=== PATIENT | male | born 1965 | race American Indian/Alaskan Native ===

== ENCOUNTER 2018-05-03 10:08 | Emergency (ER) | payer SELFPAY ==
[2018-05-03 10:19] VITALS: BP 136/94
[2018-05-03] MEDS ORDERED: MOTRIN PO ONE (11:45)
--- NOTE | 2018-05-03 11:54 | Emergency Department Report ---
ED Upper Extremity Inj HPI - General Chief Complaint: Pain General Stated Complaint: LEFT ARM PAIN Time Seen by Provider: 05/03/18 11:45 Source: patient Mode of arrival: Ambulatory Limitations: No Limitations - History of Present Illness Initial Comments: This is a 52-year-old male nontoxic, well nourished in appearance, no acute signs of distress presents to the ED with c/o of left forearm pain 1 week. 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 Patient denies any other trauma. Patient denies any numbness, tingling, fever, chills, nausea, vomiting, chest pain, shortness of breath, headache, stiff neck. Patient denies any joint swelling or joint redness. Patient denies decreased range of motion. Patient denies any allergies or significant past medical history. MD Complaint: Injury to:: left, forearm -: week(s) (1) Other Extremity Injury: Forearm: Left Other Injuries: none Place: work Severity scale (0 -10): 8 Improves With: none Worsens With: other (palpation of flexor digitorum superficialis muscle) Associated Symptoms: denies other symptoms. denies: weakness, numbness, neck pain, suspects foreign body, nausea/vomiting, heard/felt popping sensat - Related Data Previous Rx's Medication Instructions Recorded Last Taken Type HYDROcodone/APAP 10-325 [[place] 1 each PO Q6H PRN #12 tablet 12/18/14 Unknown Rx 10/325] Promethazine [Phenergan] 25 mg PO Q6H PRN #8 tablet 12/18/14 Unknown Rx Amoxicillin 500 mg PO BID #14 tablet 12/24/14 Unknown Rx Butalb/Acetamin/Caff 50-325-40 2 tab PO Q8H PRN #20 tablet 12/24/14 Unknown Rx [Fioricet] Cyclobenzaprine [Flexeril] 10 mg PO QHS PRN #10 tablet 05/03/18 Unknown Rx Ibuprofen [Motrin] 600 mg PO Q8H PRN #30 tablet 05/03/18 Unknown Rx Prednisone [predniSONE 10 mg 10 mg PO .TAPER #1 tab.ds.pk 05/03/18 Unknown Rx (6-Day Pack, 21 Tabs)] Allergies Allergy/AdvReac Type Severity Reaction Status Date / Time No Known Allergies Allergy Verified 12/18/14 07:59 ED Review of Systems ROS: Stated complaint: LEFT ARM PAIN Other details as noted in HPI Constitutional: denies: chills, fever Eyes: denies: eye pain, eye discharge, vision change ENT: denies: ear pain, throat pain Respiratory: denies: cough, shortness of breath, wheezing Cardiovascular: denies: chest pain, palpitations Endocrine: no symptoms reported Gastrointestinal: denies: abdominal pain, nausea, diarrhea Genitourinary: denies: urgency, dysuria Musculoskeletal: denies: back pain, joint swelling, arthralgia Skin: denies: rash, lesions Neurological: denies: headache, weakness, paresthesias Psychiatric: denies: anxiety, depression Hematological/Lymphatic: denies: easy bleeding, easy bruising ED Past Medical Hx - Past Medical History Hx Headaches / Migraines: Yes - Surgical History Additional Surgical History: left testicle removed - Social History Smoking Status: Current Some Day Smoker Substance Use Type: None (denies other illicit drug use) - Medications Home Medications: Home Medications Medication Instructions Recorded Confirmed Last Taken Type HYDROcodone/APAP 10-325 [[place] 1 each PO Q6H PRN #12 tablet 12/18/14 Unknown Rx 10/325] Promethazine [Phenergan] 25 mg PO Q6H PRN #8 tablet 12/18/14 Unknown Rx Amoxicillin 500 mg PO BID #14 tablet 12/24/14 Unknown Rx Butalb/Acetamin/Caff 50-325-40 2 tab PO Q8H PRN #20 tablet 12/24/14 Unknown Rx [Fioricet] Cyclobenzaprine [Flexeril] 10 mg PO QHS PRN #10 tablet 05/03/18 Unknown Rx Ibuprofen [Motrin] 600 mg PO Q8H PRN #30 tablet 05/03/18 Unknown Rx Prednisone [predniSONE 10 mg 10 mg PO .TAPER #1 tab.ds.pk 05/03/18 Unknown Rx (6-Day Pack, 21 Tabs)] ED Physical Exam - General Limitations: No Limitations General appearance: alert, in no apparent distress - Head Head exam: Present: atraumatic, normocephalic - Eye Eye exam: Present: normal appearance - ENT ENT exam: Present: mucous membranes moist - Neck Neck exam: Present: normal inspection - Respiratory Respiratory exam: Present: normal lung sounds bilaterally. Absent: respiratory distress - Cardiovascular Cardiovascular Exam: Present: regular rate, normal rhythm. Absent: systolic murmur, diastolic murmur, rubs, gallop - GI/Abdominal GI/Abdominal exam: Present: soft, normal bowel sounds - Rectal Rectal exam: Present: deferred - Extremities Exam Extremities exam: Present: normal inspection, full ROM, tenderness, normal capillary refill. Absent: joint swelling, calf tenderness - Expanded Upper Extremity Exam Left General: Present: normal inspection Shoulder Exam: Present: normal inspection, full ROM. Absent: tenderness, swelling Upper Arm exam: Present: normal inspection, full ROM. Absent: tenderness, swelling Elbow exam: Present: normal inspection, full ROM. Absent: tenderness, swelling , abrasion, laceration, ecchymosis, deformity, crepidus, dislocation, erythema, effusion, pain w/ pronation/supination, tenderness over radial head Forearm Wrist exam: Present: normal inspection, full ROM, tenderness (flexor digitorum superficialis muscle). Absent: swelling, abrasion, laceration, ecchymosis, deformity, crepidus, dislocation, erythema, tenderness over anatomical snuff box, pain with axial thumb loading Hand Wrist exam: Present: normal inspection, full ROM. Absent: tenderness, swelling Neuro motor exam: Present: wrist extension intact, thumb opposition intact, thumb IP flexion intact, thumb adduction intact, fingers 2-5 abduction intact Neurosensory exam: Present: 2-point discrimination, radial nerve intact, ulnar nerve intact, median nerve intact Vascular: Present: vascular compromise, normal capillary refill, radial pulse, brachial pulse, ulnar pulse - Back Exam Back exam: Present: normal inspection, full ROM - Neurological Exam Neurological exam: Present: alert, oriented X3, normal gait - Psychiatric Psychiatric exam: Present: normal affect, normal mood - Skin Skin exam: Present: warm, dry, intact, normal color. Absent: rash ED Course Vital Signs 05/03/18 10:17 Temperature 98.1 F Pulse Rate 82 Respiratory 18 Rate Blood Pressure 136/94 O2 Sat by Pulse 100 Oximetry - Reevaluation(s) Reevaluation #1: 05/03/18 11:57 Patient is speaking in full sentences with no signs of distress noted. ED Medical Decision Making - Medical Decision Making This is a 52-year-old male that presents with left forearm muscle strain. Patient is stable and was examined by me. I referred patient to an orthopedic doctor for further evaluation for possible MRI. Denies any trauma. Patient does has tenderness to the flexor digitorum superficialis muscle but no joint swelling. No ecchymosis. no joint redness or swelling. Not warm to touch. No signs of cellulites present. Patient was instructed to RICE therapy. Patient received Motrin for pain. Patient is discharged with Motrin, Flexeril and Prednsione At time of discharge, the patient does not seem toxic or ill in appearance. No acute signs of distress noted. Patient agrees to discharge treatment plan of care. No further questions noted by the patient. Critical care attestation.: If time is entered above; I have spent that time in minutes in the direct care of this critically ill patient, excluding procedure time. ED Disposition Clinical Impression: Muscle strain of left forearm Qualifiers: Encounter type: initial encounter Qualified Code(s): S56.912A - Strain of unspecified muscles, fascia and tendons at forearm level, left arm, initial encounter Disposition: TO HOME OR SELFCARE Is pt being admited?: No Does the pt Need Aspirin: No Condition: Stable Instructions: Muscle Strain (ED), RICE Therapy (ED), Cyclobenzaprine (By mouth) , Ibuprofen (By mouth), Prednisone (By mouth) Additional Instructions: Follow-up with your orthopedic doctor in 3-5 days or if symptoms worsen such as bladder or bowel stability, chest pain, short of breath, numbness or tingling sensation in extremities, headache, dizziness, visual changes, nausea vomiting, or abdominal pain, return back to emergency room as was possible. Take ibuprofen and Flexeril as prescribed. Do not operate heavy machinery while taking Flexeril due to sedation Prescriptions: Cyclobenzaprine [Flexeril] 10 mg PO QHS PRN #10 tablet PRN Reason: Muscle Spasm Ibuprofen [Motrin] 600 mg PO Q8H PRN #30 tablet PRN Reason: Pain Prednisone [predniSONE 10 mg (6-Day Pack, 21 Tabs)] 10 mg PO .TAPER #1 tab.ds.pk Referrals: PRIMARY CARE, [Primary Care Provider] - 3-5 Days DO PAUL MD [Staff Physician] - 3-5 Days [facility] [Outside] - 3-5 Days [facility] [Outside] - 3-5 Days Forms: Work/School Release Form(ED)
== END 2018-05-03 12:20 | disposition home or self-care (01) ==
LOC: ED 10:08
DX: S56.912A Strain of unspecified muscles, fascia and tendons at forearm level, left arm, initial encounter (principal); G43.909 Migraine, unspecified, not intractable, without status migrainosus; F17.200 Nicotine dependence, unspecified, uncomplicated; X50.9XXA Other and unspecified overexertion or strenuous movements or postures, initial encounter; Y93.89 Activity, other specified; Y92.69 Other specified industrial and construction area as the place of occurrence of the external cause; Y99.8 Other external cause status
CPT/HCPCS: 99282

== ENCOUNTER 2019-05-13 13:00 | Emergency (ER) | payer OTHER ==
--- NOTE | 2019-05-13 13:07 | Event Note ---
ED Screening Note ED Screening Note: NON BLEEDING HEMORRHOIDS CONCERNED BECAUSE PREP H SUPP AND CREAM AND THEY HAVE NOT GONE BACK IN PAIN WITH SITTING RX NONE PMH NONE This initial assessment/diagnostic orders/clinical plan/treatment(s) is/are subject to change based on patients health status, clinical progression and re- assessment by fellow clinical providers in the ED. Further treatment and workup at subsequent clinical providers discretion. Patient/guardian urged not to elope from the ED as their condition may be serious if not clinically assessed and managed. Initial orders include: ACC FOR EXAM
--- NOTE | 2019-05-13 15:29 | Emergency Department Report ---
ED General Adult HPI - General Chief complaint: Abdominal Pain Stated complaint: TROUBLE WALKING Time Seen by Provider: 05/13/19 13:06 Source: patient Mode of arrival: Ambulatory Limitations: No Limitations - History of Present Illness Initial comments: Is a 53-year-old -[place] male who presents to the emergency room with anal pruritus and pain for one week. Patient states he is applying Preparation H and jock itch cream with no improvement of symptoms. Past medical history of migraines. Reports pain is worse with sitting. He denies constipation, diarrhea, bleeding or tarry stools. Onset/Timin -: week(s) Location: buttocks (rectal) Radiation: non-radiation Quality: aching Consistency: constant Improves with: none Worsens with: other (sitting or walking) Associated Symptoms: denies other symptoms Treatments Prior to Arrival: other (preperation H) - Related Data Previous Rx's Medication Instructions Recorded Last Taken Type HYDROcodone/APAP 10-325 [[place] 1 each PO Q6H PRN #12 tablet 12/18/14 Unknown Rx 10/325] Promethazine [Phenergan] 25 mg PO Q6H PRN #8 tablet 12/18/14 Unknown Rx Amoxicillin 500 mg PO BID #14 tablet 12/24/14 Unknown Rx Butalb/Acetamin/Caff 50-325-40 2 tab PO Q8H PRN #20 tablet 12/24/14 Unknown Rx [Fioricet] Cyclobenzaprine [Flexeril] 10 mg PO QHS PRN #10 tablet 05/03/18 Unknown Rx Ibuprofen [Motrin] 600 mg PO Q8H PRN #30 tablet 05/03/18 Unknown Rx Prednisone [predniSONE 10 mg 10 mg PO .TAPER #1 tab.ds.pk 05/03/18 Unknown Rx (6-Day Pack, 21 Tabs)] Hydrocort/Pramoxine [Proctofoam-Hc] 10 gm MI BID 7 Days #1 can 05/13/19 Unknown Rx Allergies Allergy/AdvReac Type Severity Reaction Status Date / Time No Known Allergies Allergy Verified 05/13/19 13:00 ED Review of Systems ROS: Stated complaint: TROUBLE WALKING Other details as noted in HPI Constitutional: denies: chills, fever Respiratory: denies: cough, shortness of breath, wheezing Cardiovascular: denies: chest pain, palpitations Gastrointestinal: other (anal puritus and hemorroids). denies: abdominal pain, nausea, diarrhea Genitourinary: denies: urgency, dysuria Skin: denies: rash, lesions Neurological: denies: headache, weakness, paresthesias Psychiatric: denies: anxiety, depression ED Past Medical Hx - Past Medical History Hx Headaches / Migraines: Yes - Surgical History Additional Surgical History: left testicle removed - Social History Smoking Status: Current Some Day Smoker Substance Use Type: None - Medications Home Medications: Home Medications Medication Instructions Recorded Confirmed Last Taken Type HYDROcodone/APAP 10-325 [[place] 1 each PO Q6H PRN #12 tablet 12/18/14 Unknown Rx 10/325] Promethazine [Phenergan] 25 mg PO Q6H PRN #8 tablet 12/18/14 Unknown Rx Amoxicillin 500 mg PO BID #14 tablet 12/24/14 Unknown Rx Butalb/Acetamin/Caff 50-325-40 2 tab PO Q8H PRN #20 tablet 12/24/14 Unknown Rx [Fioricet] Cyclobenzaprine [Flexeril] 10 mg PO QHS PRN #10 tablet 05/03/18 Unknown Rx Ibuprofen [Motrin] 600 mg PO Q8H PRN #30 tablet 05/03/18 Unknown Rx Prednisone [predniSONE 10 mg 10 mg PO .TAPER #1 tab.ds.pk 05/03/18 Unknown Rx (6-Day Pack, 21 Tabs)] Hydrocort/Pramoxine [Proctofoam-Hc] 10 gm [place] BID 7 Days #1 can 05/13/19 Unknown Rx ED Physical Exam - General Limitations: No Limitations General appearance: alert, in no apparent distress - Respiratory Respiratory exam: Present: normal lung sounds bilaterally. Absent: respiratory distress - Cardiovascular Cardiovascular Exam: Present: regular rate, normal rhythm. Absent: systolic murmur, diastolic murmur, rubs, gallop - GI/Abdominal GI/Abdominal exam: Present: soft, normal bowel sounds. Absent: distended, tenderness, guarding, rebound, rigid - Rectal Rectal exam: Present: normal rectal tone, hemorrhoids (external), tenderness (on palpation of external hemorroid lesion). Absent: decreased rectal tone - Neurological Exam Neurological exam: Present: alert, oriented X3, normal gait - Psychiatric Psychiatric exam: Present: normal affect, normal mood - Skin Skin exam: Present: warm, dry, intact, normal color. Absent: rash ED Course Vital Signs 05/13/19 13:05 Temperature 98.1 F Pulse Rate 96 H Respiratory 16 Rate Blood Pressure 121/91 O2 Sat by Pulse 100 Oximetry ED Medical Decision Making - Medical Decision Making Patient was examined by me. Patient is nontoxic appearing and stable. Vitals are normal. A rectal exam was performed. There is a external hemorrhoid without signs of thrombosis. Start Proctofoam for external hemorrhoids. Follow up with primary care doctor. Patient discharged home in stable condition. Critical care attestation.: If time is entered above; I have spent that time in minutes in the direct care of this critically ill patient, excluding procedure time. ED Disposition Clinical Impression: Anal pruritus, External hemorrhoid Disposition: - TO HOME OR SELFCARE Is pt being admited?: No Does the pt Need Aspirin: No Condition: Stable Instructions: Hemorrhoids (ED), High Fiber Diet (ED) Additional Instructions: Start a high fiber diet to avoid constipation and increase water intake. Prescriptions: Hydrocort/Pramoxine [Proctofoam-Hc] 10 gm MI BID 7 Days #1 can Referrals: [facility] [Outside] - 3-5 Days [facility] [Outside] - 3-5 Days [facility] [Outside] - 3-5 Days Forms: Work/School Release Form(ED) Time of Disposition: 15:30
[2019-05-13 16:26] VITALS: BP 136/91
== END 2019-05-13 16:25 | disposition home or self-care (01) ==
LOC: ED 13:00
DX: L29.0 Pruritus ani (principal); K64.4 Residual hemorrhoidal skin tags; G43.909 Migraine, unspecified, not intractable, without status migrainosus; F17.200 Nicotine dependence, unspecified, uncomplicated; Z79.899 Other long term (current) drug therapy
CPT/HCPCS: 99282

== ENCOUNTER 2019-08-12 13:44 | Emergency (ER) | payer SELFPAY ==
[2019-08-12 14:05] VITALS: BP 137/88
[2019-08-12] MEDS ORDERED: traMADol 50 MG TAB PO ONE (15:28)
--- NOTE | 2019-08-12 15:33 | Emergency Department Report ---
ED Abdominal Pain HPI - General Chief Complaint: Skin Rash Stated Complaint: REAR END SWOLLEN Time Seen by Provider: 08/12/19 15:18 Source: patient Mode of arrival: Ambulatory Limitations: No Limitations - History of Present Illness Initial Comments: 55 yo male c/o rectal pain and itching. He's had a hx of hemorrhoids states he could not afford to buy the cream. Denies rectal bleeding. Having regular daily bowel movements. Denies fever, abd pain, nausea and vomiting. MD Complaint: other (rectal itching and pain) -: month(s) (3) Severity: moderate Severity scale (0 -10): 3 Consistency: constant Improves With: nothing Worsens With: nothing Associated Symptoms: denies other symptoms. denies: vomiting, diarrhea, chills, constipation, dysuria, hematemesis, hematochezia - Related Data Previous Rx's Medication Instructions Recorded Last Taken Type HYDROcodone/APAP 10-325 [[place] 1 each PO Q6H PRN #12 tablet 12/18/14 Unknown Rx 10/325] Promethazine [Phenergan] 25 mg PO Q6H PRN #8 tablet 12/18/14 Unknown Rx Amoxicillin 500 mg PO BID #14 tablet 12/24/14 Unknown Rx Butalb/Acetamin/Caff 50-325-40 2 tab PO Q8H PRN #20 tablet 12/24/14 Unknown Rx [Fioricet] Cyclobenzaprine [Flexeril] 10 mg PO QHS PRN #10 tablet 05/03/18 Unknown Rx Ibuprofen [Motrin] 600 mg PO Q8H PRN #30 tablet 05/03/18 Unknown Rx Prednisone [predniSONE 10 mg 10 mg PO .TAPER #1 tab.ds.pk 05/03/18 Unknown Rx (6-Day Pack, 21 Tabs)] Hydrocort/Pramoxine [Proctofoam-Hc] 10 gm [place] BID 7 Days #1 can 05/13/19 Unknown Rx Hydrocortisone [Anusol-Hc 2.5% TOP 30 gm RC TID #15 gm 08/12/19 Unknown Rx CREAM] Allergies Allergy/AdvReac Type Severity Reaction Status Date / Time No Known Allergies Allergy Verified 05/13/19 13:00 ED Review of Systems ROS: Stated complaint: REAR END SWOLLEN Other details as noted in HPI Comment: All other systems reviewed and negative Gastrointestinal: other (rectal itching and rectal pain) ED Past Medical Hx - Past Medical History Previous Medical History?: Yes Hx Headaches / Migraines: Yes - Surgical History Past Surgical History?: Yes Additional Surgical History: left testicle removed - Social History Smoking Status: Current Some Day Smoker Substance Use Type: None - Medications Home Medications: Home Medications Medication Instructions Recorded Confirmed Last Taken Type HYDROcodone/APAP 10-325 [[place] 1 each PO Q6H PRN #12 tablet 12/18/14 Unknown Rx 10/325] Promethazine [Phenergan] 25 mg PO Q6H PRN #8 tablet 12/18/14 Unknown Rx Amoxicillin 500 mg PO BID #14 tablet 12/24/14 Unknown Rx Butalb/Acetamin/Caff 50-325-40 2 tab PO Q8H PRN #20 tablet 12/24/14 Unknown Rx [Fioricet] Cyclobenzaprine [Flexeril] 10 mg PO QHS PRN #10 tablet 05/03/18 Unknown Rx Ibuprofen [Motrin] 600 mg PO Q8H PRN #30 tablet 05/03/18 Unknown Rx Prednisone [predniSONE 10 mg 10 mg PO .TAPER #1 tab.ds.pk 05/03/18 Unknown Rx (6-Day Pack, 21 Tabs)] Hydrocort/Pramoxine [Proctofoam-Hc] 10 gm [place] BID 7 Days #1 can 05/13/19 Unknown Rx Hydrocortisone [Anusol-Hc 2.5% TOP 30 gm RC TID #15 gm 08/12/19 Unknown Rx CREAM] ED Physical Exam - General Limitations: No Limitations General appearance: alert, in no apparent distress - Head Head exam: Present: atraumatic - Eye Eye exam: Present: normal appearance - Respiratory Respiratory exam: Present: normal lung sounds bilaterally, respiratory distress - Cardiovascular Cardiovascular Exam: Present: regular rate, normal rhythm, normal heart sounds - GI/Abdominal GI/Abdominal exam: Present: soft, normal bowel sounds. Absent: distended, tenderness, guarding, rebound, rigid - Rectal Rectal exam: Present: normal rectal tone, hemorrhoids, other (1 external hemorrhoids no bleeding non-tender, no stool in rectal vault). Absent: black stool, bloody stool, fecal impaction, mass, tenderness, prostate tenderness - Extremities Exam Extremities exam: Present: normal inspection - Back Exam Back exam: Present: normal inspection - Neurological Exam Neurological exam: Present: alert, oriented X3. Absent: altered - Psychiatric Psychiatric exam: Present: normal affect - Skin Skin exam: Present: warm, dry, intact ED Course Vital Signs 08/12/19 14:03 Temperature 97.9 F Pulse Rate 85 Respiratory 18 Rate Blood Pressure 137/88 O2 Sat by Pulse 98 Oximetry ED Medical Decision Making - Medical Decision Making Rectal exam + for non-thrombosed external hemorrhoid. No other abnormality noted of his rectum. Discharge home to do warm sitz baths 3 times a day. Use annusol cream tid, otc tylenol or advil for pain and follow up with PCP in 2-3 days Critical Care Time: No Critical care attestation.: If time is entered above; I have spent that time in minutes in the direct care of this critically ill patient, excluding procedure time. ED Disposition Clinical Impression: External hemorrhoids without mention of complication Disposition: DC-01 TO HOME OR SELFCARE Is pt being admited?: No Does the pt Need Aspirin: No Condition: Stable Instructions: Hemorrhoids (ED) Additional Instructions: Warm water soaps three times a day for 1 week.Please follow up with your doctor in 2-3 days or follow up at [facility]. Return to the ER for any rectal bleeding abdominal pain fever or vomiting Prescriptions: Hydrocortisone [Anusol-Hc 2.5% TOP CREAM] 30 gm RC TID #15 gm Forms: Work/School Release Form(ED) Time of Disposition: 15:39
== END 2019-08-12 15:50 | disposition home or self-care (01) ==
LOC: ED 13:44
DX: K64.4 Residual hemorrhoidal skin tags (principal); G43.909 Migraine, unspecified, not intractable, without status migrainosus; F17.200 Nicotine dependence, unspecified, uncomplicated
CPT/HCPCS: 99282

== ENCOUNTER 2020-07-26 00:40 | Emergency (ER) | payer SELFPAY | END 2020-07-26 03:00 | disposition left against medical advice (07) | LOC: ED 00:40 | DX: R10.9 Unspecified abdominal pain (principal); Z53.21 Procedure and treatment not carried out due to patient leaving prior to being seen by health care provider ==

== ENCOUNTER 2021-07-23 11:15 | Emergency (ER) | payer SELFPAY ==
[2021-07-23 12:07] VITALS: BP 133/101
--- NOTE | 2021-07-23 13:10 | Emergency Department Report ---
ED ENT HPI - General Chief complaint: Sore Throat Stated complaint: DIFFICULT BREATHING/SOMETHING IN THROAT Time Seen by Provider: 07/23/21 12:01 Source: patient Mode of arrival: Ambulatory Limitations: No Limitations - History of Present Illness Initial comments: Patient presents with a month-long history of neck pain. He states that over a month ago, he started having pain in the right anterior aspect of the neck. He was seen at [facility]. He states that blood work and a CT were obtained. He was told that he had something swollen and inflamed in that area. He was given steroids and Zithromax. Symptoms transiently improved and then worsened. Over the last couple of days, the pain is worsened. He has no trauma. No fevers or chills per there is no cough congestion. He denies having a sore throat. He does reports having the pain in the anterior aspect of the right throat that is worse with swallowing. He states that sometimes the pain is so bad he feels as though he has trouble breathing. He denies getting choked on anything. He denies eating anything that may have injured his throat. - Related Data Previous Rx's Medication Instructions Recorded Last Taken Type HYDROcodone/APAP 10-325 [[place] 1 each PO Q6H PRN #12 tablet 12/18/14 Unknown Rx 10/325] Promethazine [Phenergan] 25 mg PO Q6H PRN #8 tablet 12/18/14 Unknown Rx Amoxicillin 500 mg PO BID #14 tablet 12/24/14 Unknown Rx Butalb/Acetamin/Caff 50-325-40 2 tab PO Q8H PRN #20 tablet 12/24/14 Unknown Rx [Fioricet] Cyclobenzaprine [Flexeril] 10 mg PO QHS PRN #10 tablet 05/03/18 Unknown Rx Ibuprofen [Motrin] 600 mg PO Q8H PRN #30 tablet 05/03/18 Unknown Rx Hydrocort/Pramoxine [Proctofoam-Hc] 10 gm TX BID 7 Days #1 can 05/13/19 Unknown Rx Hydrocortisone [Anusol-Hc 2.5% TOP 30 gm RC TID #15 gm 08/12/19 Unknown Rx CREAM] Lisinopril [Zestril] 5 mg PO DAILY #30 tablet 07/23/21 Unknown Rx Prednisone [predniSONE 10 mg 10 mg PO .TAPER #1 tab.ds.pk 07/23/21 Unknown Rx (6-Day Pack, 21 Tabs)] Allergies Allergy/AdvReac Type Severity Reaction Status Date / Time No Known Allergies Allergy Verified 05/13/19 13:00 ED Dental HPI - General Chief complaint: Sore Throat Stated complaint: DIFFICULT BREATHING/SOMETHING IN THROAT Time Seen by Provider: 07/23/21 12:01 Source: patient Mode of arrival: Ambulatory Limitations: No Limitations - Related Data Previous Rx's Medication Instructions Recorded Last Taken Type HYDROcodone/APAP 10-325 [[place] 1 each PO Q6H PRN #12 tablet 12/18/14 Unknown Rx 10/325] Promethazine [Phenergan] 25 mg PO Q6H PRN #8 tablet 12/18/14 Unknown Rx Amoxicillin 500 mg PO BID #14 tablet 12/24/14 Unknown Rx Butalb/Acetamin/Caff 50-325-40 2 tab PO Q8H PRN #20 tablet 12/24/14 Unknown Rx [Fioricet] Cyclobenzaprine [Flexeril] 10 mg PO QHS PRN #10 tablet 05/03/18 Unknown Rx Ibuprofen [Motrin] 600 mg PO Q8H PRN #30 tablet 05/03/18 Unknown Rx Hydrocort/Pramoxine [Proctofoam-Hc] 10 gm TX BID 7 Days #1 can 05/13/19 Unknown Rx Hydrocortisone [Anusol-Hc 2.5% TOP 30 gm RC TID #15 gm 08/12/19 Unknown Rx CREAM] Lisinopril [Zestril] 5 mg PO DAILY #30 tablet 07/23/21 Unknown Rx Prednisone [predniSONE 10 mg 10 mg PO .TAPER #1 tab.ds.pk 07/23/21 Unknown Rx (6-Day Pack, 21 Tabs)] Allergies Allergy/AdvReac Type Severity Reaction Status Date / Time No Known Allergies Allergy Verified 05/13/19 13:00 ED Review of Systems ROS: Stated complaint: DIFFICULT BREATHING/SOMETHING IN THROAT Other details as noted in HPI Comment: All other systems reviewed and negative Constitutional: denies: fever Eyes: denies: eye pain ENT: as per HPI Respiratory: denies: cough Cardiovascular: denies: chest pain Endocrine: denies: unexplained weight loss Gastrointestinal: denies: abdominal pain Genitourinary: denies: dysuria Musculoskeletal: denies: back pain Skin: denies: rash Neurological: denies: headache Hematological/Lymphatic: denies: easy bruising ED Past Medical Hx - Past Medical History Previous Medical History?: Yes Hx Hypertension: Yes (Uncontrolled and untreated) Hx Headaches / Migraines: Yes - Surgical History Additional Surgical History: left testicle removed - Family History Family history: hypertension - Social History Smoking Status: Current Some Day Smoker Substance Use Type: None - Medications Home Medications: Home Medications Medication Instructions Recorded Confirmed Last Taken Type HYDROcodone/APAP 10-325 [[place] 1 each PO Q6H PRN #12 tablet 12/18/14 Unknown Rx 10/325] Promethazine [Phenergan] 25 mg PO Q6H PRN #8 tablet 12/18/14 Unknown Rx Amoxicillin 500 mg PO BID #14 tablet 12/24/14 Unknown Rx Butalb/Acetamin/Caff 50-325-40 2 tab PO Q8H PRN #20 tablet 12/24/14 Unknown Rx [Fioricet] Cyclobenzaprine [Flexeril] 10 mg PO QHS PRN #10 tablet 05/03/18 Unknown Rx Ibuprofen [Motrin] 600 mg PO Q8H PRN #30 tablet 05/03/18 Unknown Rx Hydrocort/Pramoxine [Proctofoam-Hc] 10 gm TX BID 7 Days #1 can 05/13/19 Unknown Rx Hydrocortisone [Anusol-Hc 2.5% TOP 30 gm RC TID #15 gm 08/12/19 Unknown Rx CREAM] Lisinopril [Zestril] 5 mg PO DAILY #30 tablet 07/23/21 Unknown Rx Prednisone [predniSONE 10 mg 10 mg PO .TAPER #1 tab.ds.pk 07/23/21 Unknown Rx (6-Day Pack, 21 Tabs)] ED Physical Exam - General Limitations: No Limitations, Other (Pulse ox noted and normal) General appearance: alert, in no apparent distress - Head Head exam: Present: atraumatic, normocephalic, normal inspection - Eye Eye exam: Present: normal appearance, EOMI. Absent: scleral icterus - ENT ENT exam: Present: normal exam, normal orophraynx, mucous membranes moist - Neck Neck exam: Present: normal inspection, tenderness (There is right anterior cer vical lymphadenopathy noted.), lymphadenopathy (Right anterior cervical). Absent: meningismus, thyromegaly - Respiratory Respiratory exam: Present: normal lung sounds bilaterally. Absent: respiratory distress - Cardiovascular Cardiovascular Exam: Present: regular rate, normal rhythm - GI/Abdominal GI/Abdominal exam: Present: soft - Extremities Exam Extremities exam: Present: normal capillary refill - Back Exam Back exam: Present: full ROM - Neurological Exam Neurological exam: Present: alert, oriented X3, CN II-XII intact, normal gait. Absent: motor sensory deficit - Psychiatric Psychiatric exam: Present: normal affect, normal mood - Skin Skin exam: Present: warm, dry ED Course Vital Signs 07/23/21 12:04 Temperature 98.6 F Pulse Rate 68 Respiratory 16 Rate Blood Pressure 133/101 [Right] O2 Sat by Pulse 100 Oximetry - Reevaluation(s) Reevaluation #1: 07/23/21 13:09 Patient was discharged ED Medical Decision Making - Medical Decision Making Patient presents with right cervical lymphadenopathy. Etiology for this is not known. He was treated with Zithromax and steroids and had transient improve ment. At this time, was placed on a longer course of antibiotics. He stated that he was happy to do this. He does have elevated blood pressure which can be treated symptomatically. There is no evidence of endorgan damage. He does eat a lot of salt. We discussed lifestyle changes. He has been told that he will need follow-up for the neck pain. I do not appreciate any thyromegaly. If he has ongoing symptoms, he may need ENT referral and biopsy. He voices understanding and states that he is happy to do that. There is no evidence of airway compromise or stridor at this time. Critical Care Time: No Critical care attestation.: If time is entered above; I have spent that time in minutes in the direct care of this critically ill patient, excluding procedure time. ED Disposition Clinical Impression: Elevated blood pressure reading, Lymphadenopathy of right cervical region Disposition: HOME / SELF CARE / HOMELESS Is pt being admited?: No Condition: Stable Instructions: Lymphadenopathy, Preventing Hypertension Additional Instructions: avoid salt. see a regular doctor for recheck. return for problems. take all of the medications. Prescriptions: Prednisone [predniSONE 10 mg (6-Day Pack, 21 Tabs)] 10 mg PO .TAPER #1 tab.ds.pk Lisinopril [Zestril] 5 mg PO DAILY #30 tablet Referrals: GENOVEVA SANTIZO MD [Staff Physician] - 3-5 Days PRIMARY CARE, [Primary Care Provider] - 3-5 Days
== END 2021-07-23 12:22 | disposition home or self-care (01) ==
LOC: ED 11:15
DX: R59.1 Generalized enlarged lymph nodes (principal); I10 Essential (primary) hypertension; G43.909 Migraine, unspecified, not intractable, without status migrainosus
CPT/HCPCS: 99282

== ENCOUNTER 2021-07-28 11:21 | Emergency (ER) | payer SELFPAY ==
[2021-07-28] MEDS ORDERED: ACETAMINOPHEN W/CODEINE 300-30 MG TAB PO ONE (11:42)
--- NOTE | 2021-07-28 12:05 | Emergency Department Report ---
ED ENT HPI - General Chief complaint: Sore Throat Stated complaint: THROAT SORE, Hard to breathe Time Seen by Provider: 07/28/21 11:42 Source: patient Mode of arrival: Ambulatory Limitations: No Limitations - History of Present Illness Initial comments: The patient was evaluated in the emergency department for symptoms described in the history of present illness. He/she was evaluated in the context of the global COVID-19 pandemic, which necessitated consideration that the patient might be at risk for infection with the virus that causes COVID-19. I nstitutional protocols and algorithms that pertain to the evaluation of patients at risk for COVID-19 are in a state of rapid change based on information released by regulatory bodies including the CDC and federal and state organizations. These policies and algorithms were followed during the patient's care in the emergency department. Please note that these policies, procedures and recommendations changed on a rapid basis. 55-year-old -[place] male presents to the emergency room complaining of worsening sore throat and states he has difficulty swallowing. Patient states he was seen here a few days ago and was prescribed prednisone and lisinopril. Patient states that he has had no fever but pain with swallowing feels like razor blades. Patient denies any fever chills no nausea no vomiting no chest pain or shortness of breath. Patient states his difficulty to swallow and breathe. Patient is satting at 100% on room air. Patient is stable nontoxic. MD complaint: sore throat Onset/Timin -: week(s) Location: throat Severity: severe Quality: stabbing, sharp Consistency: constant Improves with: none Worsens with: swallowing Associated Symptoms: pain with swallowing, sore throat - Related Data Previous Rx's Medication Instructions Recorded Last Taken Type HYDROcodone/APAP 10-325 [[place] 1 each PO Q6H PRN #12 tablet 12/18/14 Unknown Rx 10/325] Promethazine [Phenergan] 25 mg PO Q6H PRN #8 tablet 12/18/14 Unknown Rx Amoxicillin 500 mg PO BID #14 tablet 12/24/14 Unknown Rx Butalb/Acetamin/Caff 50-325-40 2 tab PO Q8H PRN #20 tablet 12/24/14 Unknown Rx [Fioricet] Cyclobenzaprine [Flexeril] 10 mg PO QHS PRN #10 tablet 05/03/18 Unknown Rx Ibuprofen [Motrin] 600 mg PO Q8H PRN #30 tablet 05/03/18 Unknown Rx Hydrocort/Pramoxine [Proctofoam-Hc] 10 gm MT BID 7 Days #1 can 05/13/19 Unknown Rx Hydrocortisone [Anusol-Hc 2.5% TOP 30 gm RC TID #15 gm 08/12/19 Unknown Rx CREAM] Lisinopril [Zestril] 5 mg PO DAILY #30 tablet 07/23/21 Unknown Rx Prednisone [predniSONE 10 mg 10 mg PO .TAPER #1 tab.ds.pk 07/23/21 Unknown Rx (6-Day Pack, 21 Tabs)] Diclofenac Sodium 50 mg PO Q8H PRN #15 tablet. 07/28/21 Unknown Rx Allergies Allergy/AdvReac Type Severity Reaction Status Date / Time No Known Allergies Allergy Verified 05/13/19 13:00 ED Dental HPI - General Chief complaint: Sore Throat Stated complaint: THROAT SORE, Hard to breathe Time Seen by Provider: 07/28/21 11:42 Source: patient Mode of arrival: Ambulatory Limitations: No Limitations - Related Data Previous Rx's Medication Instructions Recorded Last Taken Type HYDROcodone/APAP 10-325 [[place] 1 each PO Q6H PRN #12 tablet 12/18/14 Unknown Rx 10/325] Promethazine [Phenergan] 25 mg PO Q6H PRN #8 tablet 12/18/14 Unknown Rx Amoxicillin 500 mg PO BID #14 tablet 12/24/14 Unknown Rx Butalb/Acetamin/Caff 50-325-40 2 tab PO Q8H PRN #20 tablet 12/24/14 Unknown Rx [Fioricet] Cyclobenzaprine [Flexeril] 10 mg PO QHS PRN #10 tablet 05/03/18 Unknown Rx Ibuprofen [Motrin] 600 mg PO Q8H PRN #30 tablet 05/03/18 Unknown Rx Hydrocort/Pramoxine [Proctofoam-Hc] 10 gm MT BID 7 Days #1 can 05/13/19 Unknown Rx Hydrocortisone [Anusol-Hc 2.5% TOP 30 gm RC TID #15 gm 08/12/19 Unknown Rx CREAM] Lisinopril [Zestril] 5 mg PO DAILY #30 tablet 07/23/21 Unknown Rx Prednisone [predniSONE 10 mg 10 mg PO .TAPER #1 tab.ds.pk 07/23/21 Unknown Rx (6-Day Pack, 21 Tabs)] Diclofenac Sodium 50 mg PO Q8H PRN #15 tablet. 07/28/21 Unknown Rx Allergies Allergy/AdvReac Type Severity Reaction Status Date / Time No Known Allergies Allergy Verified 05/13/19 13:00 ED Review of Systems ROS: Stated complaint: THROAT SORE, Hard to breathe Other details as noted in HPI Comment: All other systems reviewed and negative ED Past Medical Hx - Past Medical History Previous Medical History?: Yes Hx Hypertension: Yes (Uncontrolled and untreated) Hx Headaches / Migraines: Yes - Surgical History Past Surgical History?: Yes Additional Surgical History: left testicle removed - Social History Smoking Status: Current Some Day Smoker Substance Use Type: None - Medications Home Medications: Home Medications Medication Instructions Recorded Confirmed Last Taken Type HYDROcodone/APAP 10-325 [[place] 1 each PO Q6H PRN #12 tablet 12/18/14 Unknown Rx 10/325] Promethazine [Phenergan] 25 mg PO Q6H PRN #8 tablet 12/18/14 Unknown Rx Amoxicillin 500 mg PO BID #14 tablet 12/24/14 Unknown Rx Butalb/Acetamin/Caff 50-325-40 2 tab PO Q8H PRN #20 tablet 12/24/14 Unknown Rx [Fioricet] Cyclobenzaprine [Flexeril] 10 mg PO QHS PRN #10 tablet 05/03/18 Unknown Rx Ibuprofen [Motrin] 600 mg PO Q8H PRN #30 tablet 05/03/18 Unknown Rx Hydrocort/Pramoxine [Proctofoam-Hc] 10 gm MT BID 7 Days #1 can 05/13/19 Unknown Rx Hydrocortisone [Anusol-Hc 2.5% TOP 30 gm RC TID #15 gm 08/12/19 Unknown Rx CREAM] Lisinopril [Zestril] 5 mg PO DAILY #30 tablet 07/23/21 Unknown Rx Prednisone [predniSONE 10 mg 10 mg PO .TAPER #1 tab.ds.pk 07/23/21 Unknown Rx (6-Day Pack, 21 Tabs)] Diclofenac Sodium 50 mg PO Q8H PRN #15 tablet. 07/28/21 Unknown Rx ED Physical Exam - General Limitations: No Limitations General appearance: alert, in no apparent distress - Head Head exam: Present: atraumatic, normocephalic - Eye Eye exam: Present: normal appearance - ENT ENT exam: Present: mucous membranes moist - Expanded ENT Exam Expanded Throat exam: Positive: tonsillar erythema, tonsillomegaly - Neck Neck exam: Present: normal inspection - Respiratory Respiratory exam: Present: normal lung sounds bilaterally. Absent: respiratory distress - Cardiovascular Cardiovascular Exam: Present: regular rate, normal rhythm. Absent: systolic murmur, diastolic murmur, rubs, gallop - GI/Abdominal GI/Abdominal exam: Present: soft, normal bowel sounds - Rectal Rectal exam: Present: deferred - Extremities Exam Extremities exam: Present: normal inspection - Back Exam Back exam: Present: normal inspection - Neurological Exam Neurological exam: Present: alert, oriented X3 - Psychiatric Psychiatric exam: Present: normal affect, normal mood - Skin Skin exam: Present: warm, dry, intact, normal color. Absent: rash ED Course Vital Signs 07/28/21 11:37 Temperature 98.1 F Pulse Rate 61 Respiratory 18 Rate Blood Pressure 136/93 [Right] O2 Sat by Pulse 100 Oximetry Critical care attestation.: If time is entered above; I have spent that time in minutes in the direct care of this critically ill patient, excluding procedure time. ED Disposition Clinical Impression: Sore throat (viral) Disposition: 01 HOME / SELF CARE / HOMELESS Is pt being admited?: No Does the pt Need Aspirin: No Condition: Stable Additional Instructions: Strep test is negative. Please take pain medication gargle with warm salt water you can use [id number] Cepacol throat spray. Follow-up with your primary care provider. Prescriptions: Diclofenac Sodium 50 mg PO Q8H PRN #15 tablet.dr NOBLE Reason: Pain , Severe (7-10) Referrals: PRIMARY CARE, [Primary Care Provider] - 3-5 Days BRYSON STRONG MD [Referring] - 3-5 Days Forms: Work/School Release Form(ED) Time of Disposition: 12:22
[2021-07-28 12:54] VITALS: BP 148/99
== END 2021-07-28 12:54 | disposition home or self-care (01) ==
LOC: ED 11:21
DX: J02.8 Acute pharyngitis due to other specified organisms (principal); F17.200 Nicotine dependence, unspecified, uncomplicated; I10 Essential (primary) hypertension; R51.9 Headache, unspecified
CPT/HCPCS: 87116; 87430; 99283

== ENCOUNTER 2021-07-30 12:06 | Emergency (ER) | payer SELFPAY ==
[2021-07-30 12:19] VITALS: BP 115/88
--- NOTE | 2021-07-30 12:57 | Emergency Department Report ---
ED General Adult HPI - General Chief complaint: Sore Throat Stated complaint: SORE THROAT Time Seen by Provider: 07/30/21 12:26 Source: patient Mode of arrival: Ambulatory Limitations: No Limitations - History of Present Illness Initial comments: 55-year-old -Omani male patient presents with complaints of continued throat pain x4 to 6 weeks. Patient seen here for the same 07/23 and 07/28. Patient states he was also seen at [facility] prior to his ED visits here and had a CT scan of the neck and blood work performed that was found to be normal. Patient also states that he was placed on azithromycin by [facility] and did complete his prescription. Patient was prescribed steroids on 07/23 and diclofenac on 07/28 and states his symptoms have not improved. He has not followed up outpatient as referred. He rates his pain as a 4/10 in severity states it is difficult to swallow. No past medical history per patient. He states the pain is in the front right portion of his throat and hurts to touch and with swallowing. No shortness of breath or chest pain per patient. - Related Data Previous Rx's Medication Instructions Recorded Last Taken Type HYDROcodone/APAP 10-325 [[place] 1 each PO Q6H PRN #12 tablet 12/18/14 Unknown Rx 10/325] Promethazine [Phenergan] 25 mg PO Q6H PRN #8 tablet 12/18/14 Unknown Rx Amoxicillin 500 mg PO BID #14 tablet 12/24/14 Unknown Rx Butalb/Acetamin/Caff 50-325-40 2 tab PO Q8H PRN #20 tablet 12/24/14 Unknown Rx [Fioricet] Cyclobenzaprine [Flexeril] 10 mg PO QHS PRN #10 tablet 05/03/18 Unknown Rx Ibuprofen [Motrin] 600 mg PO Q8H PRN #30 tablet 05/03/18 Unknown Rx Hydrocort/Pramoxine [Proctofoam-Hc] 10 gm SC BID 7 Days #1 can 05/13/19 Unknown Rx Hydrocortisone [Anusol-Hc 2.5% TOP 30 gm RC TID #15 gm 08/12/19 Unknown Rx CREAM] Lisinopril [Zestril] 5 mg PO DAILY #30 tablet 07/23/21 Unknown Rx Prednisone [predniSONE 10 mg 10 mg PO .TAPER #1 tab.ds.pk 07/23/21 Unknown Rx (6-Day Pack, 21 Tabs)] Diclofenac Sodium 50 mg PO Q8H PRN #15 tablet. 07/28/21 Unknown Rx Amoxicillin/Potassium Clav 1 each PO BID 10 Days #20 tablet 07/30/21 Unknown Rx [Augmentin 875-125 Tablet] Allergies Allergy/AdvReac Type Severity Reaction Status Date / Time No Known Allergies Allergy Verified 07/30/21 12:19 ED Review of Systems ROS: Stated complaint: SORE THROAT Other details as noted in HPI Constitutional: denies: chills, fever, malaise, weakness ENT: throat pain Respiratory: denies: cough, shortness of breath Cardiovascular: denies: chest pain Skin: denies: rash, change in color Hematological/Lymphatic: swollen glands ED Past Medical Hx - Past Medical History Hx Hypertension: Yes (Uncontrolled and untreated) Hx Headaches / Migraines: Yes - Surgical History Additional Surgical History: left testicle removed - Social History Smoking Status: Current Some Day Smoker Substance Use Type: None - Medications Home Medications: Home Medications Medication Instructions Recorded Confirmed Last Taken Type HYDROcodone/APAP 10-325 [[place] 1 each PO Q6H PRN #12 tablet 12/18/14 Unknown Rx 10/325] Promethazine [Phenergan] 25 mg PO Q6H PRN #8 tablet 12/18/14 Unknown Rx Amoxicillin 500 mg PO BID #14 tablet 12/24/14 Unknown Rx Butalb/Acetamin/Caff 50-325-40 2 tab PO Q8H PRN #20 tablet 12/24/14 Unknown Rx [Fioricet] Cyclobenzaprine [Flexeril] 10 mg PO QHS PRN #10 tablet 05/03/18 Unknown Rx Ibuprofen [Motrin] 600 mg PO Q8H PRN #30 tablet 05/03/18 Unknown Rx Hydrocort/Pramoxine [Proctofoam-Hc] 10 gm SC BID 7 Days #1 can 05/13/19 Unknown Rx Hydrocortisone [Anusol-Hc 2.5% TOP 30 gm RC TID #15 gm 08/12/19 Unknown Rx CREAM] Lisinopril [Zestril] 5 mg PO DAILY #30 tablet 07/23/21 Unknown Rx Prednisone [predniSONE 10 mg 10 mg PO .TAPER #1 tab.ds.pk 11/09/21 Unknown Rx (6-Day Pack, 21 Tabs)] Diclofenac Sodium 50 mg PO Q8H PRN #15 tablet. 07/28/21 Unknown Rx Amoxicillin/Potassium Clav 1 each PO BID 10 Days #20 tablet 07/30/21 Unknown Rx [Augmentin 875-125 Tablet] ED Physical Exam - General Limitations: No Limitations General appearance: alert, in no apparent distress - Head Head exam: Present: atraumatic, normocephalic, normal inspection - ENT ENT exam: Present: normal exam, normal orophraynx - Neck Neck exam: Present: full ROM, lymphadenopathy (Right anterior cervical tender lymphadenopathy noted with mild to moderate swelling of the lymph node; no overlying skin changes noted) - Respiratory Respiratory exam: Present: normal lung sounds bilaterally. Absent: respiratory distress - Cardiovascular Cardiovascular Exam: Present: regular rate, normal rhythm. Absent: systolic murmur, diastolic murmur, rubs, gallop - Neurological Exam Neurological exam: Present: alert, oriented X3 - Psychiatric Psychiatric exam: Present: normal affect, normal mood - Skin Skin exam: Present: warm, dry, intact, normal color. Absent: rash ED Course Vital Signs 07/30/21 12:11 Temperature 97.6 F Pulse Rate 83 Respiratory 16 Rate Blood Pressure 115/88 O2 Sat by Pulse 98 Oximetry ED Medical Decision Making - Lab Data Result diagrams: 07/30/21 13:04 07/30/21 13:04 Lab Results 07/30/21 07/30/21 Range/Units 13:04 13:04 WBC 11.3 H (4.5-11.0) K/mm3 RBC 4.83 (3.65-5.03) M/mm3 Hgb 14.9 (11.8-15.2) gm/dl Hct 46.6 H (35.5-45.6) % MCV 97 H (84-94) fl MCH 31 (28-32) pg MCHC 32 (32-34) % RDW 12.9 L (13.2-15.2) % Plt Count 307 (140-440) K/mm3 Lymph % (Auto) 17.1 (13.4-35.0) % [place] % (Auto) 6.8 (0.0-7.3) % Eos % (Auto) 1.8 (0.0-4.3) % Baso % (Auto) 0.6 (0.0-1.8) % Lymph # (Auto) 1.9 (1.2-5.4) K/mm3 [place] # (Auto) 0.8 (0.0-0.8) K/mm3 Eos # (Auto) 0.2 (0.0-0.4) K/mm3 Baso # (Auto) 0.1 (0.0-0.1) K/mm3 Seg Neutrophils % 73.7 H (40.0-70.0) % Seg Neutrophils # 8.3 H (1.8-7.7) K/mm3 Sodium 143 (137-145) mmol/L Potassium 4.4 (3.6-5.0) mmol/L Chloride 102.2 (98-107) mmol/L Carbon Dioxide 23 (22-30) mmol/L Anion Gap 22 mmol/L BUN 19 (9-20) mg/dL Creatinine 1.1 (0.8-1.3) mg/dL Estimated GFR > 60 ml/min BUN/Creatinine Ratio 17 % Glucose 97 (75-100) mg/dL Calcium 9.4 (8.4-10.2) mg/dL - Medical Decision Making 55-year-old -[place] male patient presents with complaints of continued throat pain x4 to 6 weeks. Patient seen here for the same 07/23 and 07/28. Patient states he was also seen at [facility] prior to his ED visits here and had a CT scan of the neck and blood work performed that was found to be normal. Patient also states that he was placed on azithromycin by [facility] and did complete his prescription. Patient was prescribed steroids on 07/23 and diclofenac on 07/28 and states his symptoms have not improved. He has not followed up outpatient as referred. He rates his pain as a 4/10 in severity states it is difficult to swallow. No past medical history per patient. He states the pain is in the front right portion of his throat and hurts to touch and with swallowing. No shortness of breath or chest pain per patient. Patient also denies any fever/chills/sweats Patient also had a negative strep test performed 07/28 According to the note on 07/23, patient symptoms that improved with Z-Michel and prednisone prescribed from [facility] and then worsened again. White count is minimally elevated at 11.3. Oropharynx is clear on exam, however right singular cervical lymphadenopathy persists. We will try a trial of Augmentin. Patient to follow-up with ENT for further evaluation. Discussed in detail signs and symptoms that should prompt immediate return to the ED with patient who verbalized understanding. Critical care attestation.: If time is entered above; I have spent that time in minutes in the direct care of this critically ill patient, excluding procedure time. ED Disposition Clinical Impression: Lymphadenopathy of right cervical region Disposition: HOME / SELF CARE / HOMELESS Is pt being admited?: No Condition: Stable Instructions: Lymphadenopathy Prescriptions: Amoxicillin/Potassium Clav [Augmentin 875-125 Tablet] 1 each PO BID 10 Days #20 tablet Referrals: PRIMARY CAREMD [Primary Care Provider] - 3-5 Days DANIELA NEGRO MD [Staff Physician] - 3-5 Days
[2021-07-30 13:27] LABS: Basophils # (Auto) 0.1 K/mm3 (0.0-0.1); Basophils % (Auto) 0.6 % (0.0-1.8); Eosinophils # (Auto) 0.2 K/mm3 (0.0-0.4); Eosinophils % (Auto) 1.8 % (0.0-4.3); Hematocrit 46.6 % (35.5-45.6); Hemoglobin 14.9 gm/dl (11.8-15.2); Lymphocytes # (Auto) 1.9 K/mm3 (1.2-5.4); Lymphocytes % (Auto) 17.1 % (13.4-35.0); Mean Corpuscular HGB Conc 32 % (32-34); Mean Corpuscular Volume 97 fl (84-94); Monocytes # (Auto) 0.8 K/mm3 (0.0-0.8); Monocytes % (Auto) 6.8 % (0.0-7.3); Platelet Count 307 K/mm3 (140-440); Red Blood Count 4.83 M/mm3 (3.65-5.03); Red Cell Distribution Width 12.9 % (13.2-15.2)
[2021-07-30 14:46] LABS: BUN/Creatinine Ratio 17; Blood Urea Nitrogen 19 mg/dL (9-20); Calcium 9.4 mg/dL (8.4-10.2); Hemolysis Index 9
[2021-07-30] MEDS ORDERED: IBUPROFEN 800 MG TAB PO STA (15:19)
== END 2021-07-30 15:45 | disposition home or self-care (01) ==
LOC: ED 12:06
DX: R59.0 Localized enlarged lymph nodes (principal); F17.200 Nicotine dependence, unspecified, uncomplicated; I10 Essential (primary) hypertension
CPT/HCPCS: 36415; 80048; 85025; 99283

== ENCOUNTER 2021-08-26 15:08 | Emergency (ER) | payer SELFPAY ==
[2021-08-26] MEDS ORDERED: ASPIRIN 325 MG TAB PO ONE (15:17)
--- NOTE | 2021-08-26 16:04 | XRay Report ---
CHEST 2 VIEWS INDICATION / CLINICAL INFORMATION: DIZZINESS. COMPARISON: None available. FINDINGS: SUPPORT DEVICES: None. HEART / MEDIASTINUM: No significant abnormality. LUNGS / PLEURA: No significant pulmonary or pleural abnormality. No pneumothorax. ADDITIONAL FINDINGS: No significant additional findings. IMPRESSION: 1. No acute findings. Signer Name: Danilo Denton MD Signed: 08/26/2021 3:59 PM Workstation Name: [email or web address]
[2021-08-26] MEDS ORDERED: LOPERAMIDE 2 MG CAP PO ONE (16:19)
[2021-08-26] MEDS ORDERED: ONDANSETRON 4 MG ODT TAB PO ONE (16:19)
--- NOTE | 2021-08-26 16:23 | Emergency Department Report ---
ED N/V/D HPI - General Chief complaint: Dizziness Stated complaint: DIZZY SPELL, CANT HARDLY BREATHE, CANT HOLD BOWELS PUI?: No Time Seen by Provider: 08/26/21 16:18 Source: patient Mode of arrival: Ambulatory Limitations: No Limitations - History of Present Illness Initial comments: CC: "Both sides are irritated." HPI: This is a 55 yo male with hx of HTN who presents with vomiting and diarrhea since this morning. Diarrhea every 15 minutes. Now able to hold down Sprite. Colleague at work had a stomach virus last night. Patient ate fried chicken last night from fast food restaurant. shortness of breath and dizziness throughout the day. Main concern now is persistent diarrhea. MD complaint: nausea, vomiting, diarrhea -: Gradual, This morning Description of Vomiting: food contents Description of Diarrhea: water Associated Abdominal Pain: No Severity: severe Consistency: other (Improving) Context: possible food poisoning, sick contacts Associated Symptoms: other (Shortness of breath dizziness) - Related Data Previous Rx's Medication Instructions Recorded Last Taken Type HYDROcodone/APAP 10-325 [[place] 1 each PO Q6H PRN #12 tablet 12/18/14 Unknown Rx 10/325] Promethazine [Phenergan] 25 mg PO Q6H PRN #8 tablet 12/18/14 Unknown Rx Amoxicillin 500 mg PO BID #14 tablet 12/24/14 Unknown Rx Butalb/Acetamin/Caff 50-325-40 2 tab PO Q8H PRN #20 tablet 12/24/14 Unknown Rx [Fioricet] Cyclobenzaprine [Flexeril] 10 mg PO QHS PRN #10 tablet 05/03/18 Unknown Rx Ibuprofen [Motrin] 600 mg PO Q8H PRN #30 tablet 05/03/18 Unknown Rx Hydrocort/Pramoxine [Proctofoam-Hc] 10 gm [place] BID 7 Days #1 can 05/13/19 Unknown Rx Hydrocortisone [Anusol-Hc 2.5% TOP 30 gm RC TID #15 gm 08/12/19 Unknown Rx CREAM] Lisinopril [Zestril] 5 mg PO DAILY #30 tablet 07/23/21 Unknown Rx Prednisone [predniSONE 10 mg 10 mg PO .TAPER #1 tab.ds.pk 07/23/21 Unknown Rx (6-Day Pack, 21 Tabs)] Diclofenac Sodium 50 mg PO Q8H PRN #15 tablet. 07/28/21 Unknown Rx Acetaminophen/Codeine [Tylenol 1 tab PO Q8H PRN #4 tab 07/30/21 Unknown Rx /Codeine # 3 tab] Amoxicillin/Potassium Clav 1 each PO BID 10 Days #20 tablet 07/30/21 Unknown Rx [Augmentin 875-125 Tablet] Loperamide [Imodium] 2 tab PO QID 2 Days #16 capsule 08/26/21 Unknown Rx Promethazine [Phenergan] 25 mg PO Q6HR PRN #10 tab 08/26/21 Unknown Rx Allergies Allergy/AdvReac Type Severity Reaction Status Date / Time No Known Allergies Allergy Verified 07/30/21 12:19 ED Review of Systems ROS: Stated complaint: DIZZY SPELL, CANT HARDLY BREATHE, CANT HOLD BOWELS Other details as noted in HPI Comment: All other systems reviewed and negative Constitutional: denies: chills Respiratory: shortness of breath. denies: cough Cardiovascular: denies: chest pain Gastrointestinal: nausea, vomiting, diarrhea. denies: abdominal pain ED Past Medical Hx - Past Medical History Previous Medical History?: Yes Hx Hypertension: Yes (Uncontrolled and untreated) Hx Headaches / Migraines: Yes - Surgical History Past Surgical History?: Yes Additional Surgical History: left testicle removed - Social History Smoking Status: Current Some Day Smoker Substance Use Type: None - Medications Home Medications: Home Medications Medication Instructions Recorded Confirmed Last Taken Type HYDROcodone/APAP 10-325 [[place] 1 each PO Q6H PRN #12 tablet 12/18/14 Unknown Rx 10/325] Promethazine [Phenergan] 25 mg PO Q6H PRN #8 tablet 12/18/14 Unknown Rx Amoxicillin 500 mg PO BID #14 tablet 12/24/14 Unknown Rx Butalb/Acetamin/Caff 50-325-40 2 tab PO Q8H PRN #20 tablet 12/24/14 Unknown Rx [Fioricet] Cyclobenzaprine [Flexeril] 10 mg PO QHS PRN #10 tablet 05/03/18 Unknown Rx Ibuprofen [Motrin] 600 mg PO Q8H PRN #30 tablet 05/03/18 Unknown Rx Hydrocort/Pramoxine [Proctofoam-Hc] 10 gm [place] BID 7 Days #1 can 05/13/19 Unknown Rx Hydrocortisone [Anusol-Hc 2.5% TOP 30 gm RC TID #15 gm 08/12/19 Unknown Rx CREAM] Lisinopril [Zestril] 5 mg PO DAILY #30 tablet 07/23/21 Unknown Rx Prednisone [predniSONE 10 mg 10 mg PO .TAPER #1 tab.ds.pk 07/23/21 Unknown Rx (6-Day Pack, 21 Tabs)] Diclofenac Sodium 50 mg PO Q8H PRN #15 tablet.dr 07/28/21 Unknown Rx Acetaminophen/Codeine [Tylenol 1 tab PO Q8H PRN #4 tab 07/30/21 Unknown Rx /Codeine # 3 tab] Amoxicillin/Potassium Clav 1 each PO BID 10 Days #20 tablet 07/30/21 Unknown Rx [Augmentin 875-125 Tablet] Loperamide [Imodium] 2 tab PO QID 2 Days #16 capsule 08/26/21 Unknown Rx Promethazine [Phenergan] 25 mg PO Q6HR PRN #10 tab 08/26/21 Unknown Rx ED Physical Exam - General Limitations: No Limitations General appearance: alert, in no apparent distress, other (Sleeping in recliner chair easily arousable appears comfortable nontoxic) - Head Head exam: Present: atraumatic, normocephalic - Eye Eye exam: Present: normal appearance - ENT ENT exam: Present: mucous membranes moist - Neck Neck exam: Present: normal inspection - Respiratory Respiratory exam: Present: normal lung sounds bilaterally. Absent: respiratory distress, wheezes, rales, rhonchi - Cardiovascular Cardiovascular Exam: Present: regular rate, normal rhythm, normal heart sounds. Absent: systolic murmur, diastolic murmur, rubs, gallop - GI/Abdominal GI/Abdominal exam: Present: soft, normal bowel sounds. Absent: distended, t enderness, guarding, rebound - Rectal Rectal exam: Present: deferred - Extremities Exam Extremities exam: Present: normal inspection - Back Exam Back exam: Present: normal inspection - Neurological Exam Neurological exam: Present: alert, oriented X3 - Psychiatric Psychiatric exam: Present: normal affect, normal mood - Skin Skin exam: Present: warm, dry, intact, normal color. Absent: rash ED Medical Decision Making - Lab Data Result diagrams: 08/26/21 16:03 08/26/21 16:03 - EKG Data EKG shows normal: sinus rhythm, axis, intervals Rate: normal - EKG Data Interpretation: nonspecific ST-T wave sania, LVH 08/26/21 16:26 EKG obtained 1519 EKG interpreted by wi Rate 70 beats a minute normal axis normal intervals positive LVH no ST elevation - Radiology Data Radiology results: report reviewed Patient Name: MALICK GARCIA Gender: Male Date of : 1965 Referring Provider: CHRISTINA, ED Organization: [facility] Accession Number: [id number] Requested Date: August 26, 2021 15:17 Report Status: Final Requested Procedure: 1 Procedure Description: XR chest routine 2V Modality: XR Findings Reporting MD: Danilo Denton Dictation Time: August 26, 2021 14:59 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 COMPARISON: None available. FINDINGS: SUPPORT DEVICES: None. HEART / MEDIASTINUM: No significant abnormality. LUNGS / PLEURA: No significant pulmonary or pleural abnormality. No pneumothorax. ADDITIONAL FINDINGS: No significant additional findings. IMPRESSION: 1. No acute findings. Signer Name: Danilo Denton MD Signed: 08/26/2021 2:59 PM Workstation Name: [id number] - Medical Decision Making 55-year-old male presents with vomiting diarrhea since this morning. Differential diagnosis includes viral bacterial gastroenteritis, influenza, COVID-19 infection. Patient is tolerating p.o. at this time. Treated emergency department with Zofran and loperamide. Strongly recommended COVID-19 testing. Patient is not vaccinated against COVID-19. With triage protocol ordered for shortness of breath and dizziness ACS work-up initiated. EKG without ischemic changes. Troponin negative. I do not suspect PE arrhythmia or ACS. 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 COMPARISON: None available. FINDINGS: SUPPORT DEVICES: None. HEART / MEDIASTINUM: No significant abnormality. LUNGS / PLEURA: No significant pulmonary or pleural abnormality. No pneumothorax. ADDITIONAL FINDINGS: No significant additional findings. IMPRESSION: 1. No acute findings. Signer Name: Danilo Denton MD Signed: 08/26/2021 2:59 PM Workstation Name: [id number] Critical care attestation.: If time is entered above; I have spent that time in minutes in the direct care of this critically ill patient, excluding procedure time. ED Disposition Clinical Impression: Gastroenteritis Disposition: 01 HOME / SELF CARE / HOMELESS Is pt being admited?: No Does the pt Need Aspirin: No Condition: Stable Instructions: Viral Gastroenteritis, Adult Prescriptions: Loperamide [Imodium] 2 tab PO QID 2 Days #16 capsule Promethazine [Phenergan] 25 mg PO Q6HR PRN #10 tab PRN Reason: Nausea Referrals: GENOVEVA SANTIZO MD [Staff Physician] - as needed Forms: Work/School Release Form(ED)
[2021-08-26 16:26] LABS: Hematocrit 45.9 % (35.5-45.6); Hemoglobin 14.5 gm/dl (11.8-15.2); Mean Corpuscular HGB Conc 32 % (32-34); Mean Corpuscular Volume 96 fl (84-94); Platelet Count 234 K/mm3 (140-440); Red Blood Count 4.78 M/mm3 (3.65-5.03); Red Cell Distribution Width 13.1 % (13.2-15.2)
[2021-08-26 16:45] LABS: Alanine Aminotransferase 20 units/L (7-56); Albumin 4.1 g/dL (3.9-5); BUN/Creatinine Ratio 18; Blood Urea Nitrogen 18 mg/dL (9-20); Calcium 9.2 mg/dL (8.4-10.2); Hemolysis Index 10
[2021-08-26 19:06] LABS: RBC Morphology Normal; Total Cells Counted 100
--- NOTE | 2021-08-27 10:23 | Electrocardiograph Report ---
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
== END 2021-08-26 17:14 | disposition home or self-care (01) ==
LOC: ED 15:08
DX: K52.9 Noninfective gastroenteritis and colitis, unspecified (principal); I10 Essential (primary) hypertension; R51.9 Headache, unspecified; F17.200 Nicotine dependence, unspecified, uncomplicated; G43.909 Migraine, unspecified, not intractable, without status migrainosus; Z98.890 Other specified postprocedural states; Z79.899 Other long term (current) drug therapy
CPT/HCPCS: 36415; 71046; 80053; 84484; 85007; 85025; 93005; 99284; J3490; Q0162

== ENCOUNTER 2022-02-04 18:26 | Emergency (ER) | payer SELFPAY ==
[2022-02-04 20:38] VITALS: BP 134/79
[2022-02-04] MEDS ORDERED: HYDROcodone/ACETAMINOPHEN 5-325 MG TAB PO ONE (21:00)
[2022-02-04] MEDS ORDERED: ONDANSETRON 4 MG ODT TAB PO ONE (21:00)
[2022-02-04] MEDS ORDERED: IBUPROFEN 600 MG TAB PO ONE (21:00)
--- NOTE | 2022-02-04 21:05 | XRay Report ---
RIGHT HAND 4 VIEW(S) INDICATION / CLINICAL INFORMATION: tv fell in his hand COMPARISON: None available. FINDINGS: BONES / JOINT(S): There is an oblique fracture through the distal fifth metacarpal which has possible intra-articular involvement. There is moderate degeneration of the first metacarpophalangeal joint a nd scattered degeneration throughout the interphalangeal joints. SOFT TISSUES: No significant abnormality. ADDITIONAL FINDINGS: None. Signer Name: Semaj Combs DO Signed: 02/04/2022 9:01 PM Workstation Name: [id number]
--- NOTE | 2022-02-04 21:26 | Emergency Department Report ---
ED Upper Extremity Inj HPI - General Chief Complaint: Extremity Injury, Upper Stated Complaint: INJURED HAND Source: patient Mode of arrival: Ambulatory Limitations: No Limitations - History of Present Illness Initial Comments: Patient is a 56-year-old -[place] male with history of hypertension and migraine headaches who presents to the ED with complaint of acute onset persistent right hand pain and swelling after a heavy TV fell on his right hand 24 hours ago. Patient states that he is unable perform any active range of motion with his right hand because of worsening pain. Patient denies fall, nausea and vomiting, numbness and tingling or weakness of right hand, chest pain or shortness of breath, dizziness or syncope. MD Complaint: Injury to:: right, hand (pain, swelling) -: Sudden, hour(s) (24) Other Extremity Injury: Hand: Right (pain, swelling of lateral right hand) Other Injuries: none Place: home Severity scale (0 -10): 8 Improves With: none Worsens With: movement of extremity Context: direct blow (heavy TV fell on his right hand), injury Associated Symptoms: denies other symptoms. denies: weakness, numbness, neck pain, nausea/vomiting, other - Related Data Previous Rx's Medication Instructions Recorded Last Taken Type HYDROcodone/APAP 10-325 [[place] 1 each PO Q6H PRN #12 tablet 12/18/14 Unknown Rx 10/325] Promethazine [Phenergan] 25 mg PO Q6H PRN #8 tablet 12/18/14 Unknown Rx Amoxicillin 500 mg PO BID #14 tablet 12/24/14 Unknown Rx Butalb/Acetamin/Caff 50-325-40 2 tab PO Q8H PRN #20 tablet 12/24/14 Unknown Rx [Fioricet] Cyclobenzaprine [Flexeril] 10 mg PO QHS PRN #10 tablet 05/03/18 Unknown Rx Hydrocort/Pramoxine [Proctofoam-Hc] 10 gm [place] BID 7 Days #1 can 05/13/19 Unknown Rx Hydrocortisone [Anusol-Hc 2.5% TOP 30 gm RC TID #15 gm 08/12/19 Unknown Rx CREAM] Lisinopril [Zestril] 5 mg PO DAILY #30 tablet 07/23/21 Unknown Rx Prednisone [predniSONE 10 mg 10 mg PO .TAPER #1 tab.ds.pk 07/23/21 Unknown Rx (6-Day Pack, 21 Tabs)] Diclofenac Sodium 50 mg PO Q8H PRN #15 tablet. 07/28/21 Unknown Rx Acetaminophen/Codeine [Tylenol 1 tab PO Q8H PRN #4 tab 07/30/21 Unknown Rx /Codeine # 3 tab] Amoxicillin/Potassium Clav 1 each PO BID 10 Days #20 tablet 07/30/21 Unknown Rx [Augmentin 875-125 Tablet] Loperamide [Imodium] 2 tab PO QID 2 Days #16 capsule 08/26/21 Unknown Rx Promethazine [Phenergan] 25 mg PO Q6HR PRN #10 tab 08/26/21 Unknown Rx HYDROcodone/APAP 5-325 [[place] 1 each PO Q6HR PRN #12 tablet 02/04/22 Unknown Rx 5/325] Ibuprofen [Motrin 600 MG tab] 600 mg PO Q8H PRN #30 tablet 02/04/22 Unknown Rx Allergies Allergy/AdvReac Type Severity Reaction Status Date / Time No Known Allergies Allergy Verified 02/04/22 20:03 ED Review of Systems ROS: Stated complaint: INJURED HAND Other details as noted in HPI Constitutional: denies: chills, fever Eyes: denies: eye pain, eye discharge, vision change ENT: denies: ear pain, throat pain Respiratory: denies: cough, shortness of breath, wheezing Cardiovascular: denies: chest pain, palpitations Endocrine: no symptoms reported Gastrointestinal: denies: abdominal pain, nausea, diarrhea Genitourinary: denies: urgency, dysuria Musculoskeletal: joint swelling (right hand pain and swelling), arthralgia (right hand pain, swelling). denies: back pain Skin: denies: rash, lesions Neurological: denies: headache, weakness, paresthesias Psychiatric: denies: anxiety, depression Hematological/Lymphatic: denies: easy bleeding, easy bruising ED Past Medical Hx - Past Medical History Previous Medical History?: Yes Hx Hypertension: Yes (Uncontrolled and untreated) Hx Headaches / Migraines: Yes - Surgical History Past Surgical History?: Yes Additional Surgical History: left testicle removed - Social History Smoking Status: Never Smoker Substance Use Type: None - Medications Home Medications: Home Medications Medication Instructions Recorded Confirmed Last Taken Type HYDROcodone/APAP 10-325 [[place] 1 each PO Q6H PRN #12 tablet 12/18/14 Unknown Rx 10/325] Promethazine [Phenergan] 25 mg PO Q6H PRN #8 tablet 12/18/14 Unknown Rx Amoxicillin 500 mg PO BID #14 tablet 12/24/14 Unknown Rx Butalb/Acetamin/Caff 50-325-40 2 tab PO Q8H PRN #20 tablet 12/24/14 Unknown Rx [Fioricet] Cyclobenzaprine [Flexeril] 10 mg PO QHS PRN #10 tablet 05/03/18 Unknown Rx Hydrocort/Pramoxine [Proctofoam-Hc] 10 gm SC BID 7 Days #1 can 05/13/19 Unknown Rx Hydrocortisone [Anusol-Hc 2.5% TOP 30 gm RC TID #15 gm 08/12/19 Unknown Rx CREAM] Lisinopril [Zestril] 5 mg PO DAILY #30 tablet 07/23/21 Unknown Rx Prednisone [predniSONE 10 mg 10 mg PO .TAPER #1 tab.ds.pk 07/23/21 Unknown Rx (6-Day Pack, 21 Tabs)] Diclofenac Sodium 50 mg PO Q8H PRN #15 tablet.dr 07/28/21 Unknown Rx Acetaminophen/Codeine [Tylenol 1 tab PO Q8H PRN #4 tab 07/30/21 Unknown Rx /Codeine # 3 tab] Amoxicillin/Potassium Clav 1 each PO BID 10 Days #20 tablet 07/30/21 Unknown Rx [Augmentin 875-125 Tablet] Loperamide [Imodium] 2 tab PO QID 2 Days #16 capsule 08/26/21 Unknown Rx Promethazine [Phenergan] 25 mg PO Q6HR PRN #10 tab 08/26/21 Unknown Rx HYDROcodone/APAP 5-325 [[place] 1 each PO Q6HR PRN #12 tablet 02/04/22 Unknown Rx 5/325] Ibuprofen [Motrin 600 MG tab] 600 mg PO Q8H PRN #30 tablet 02/04/22 Unknown Rx ED Physical Exam - General Limitations: No Limitations ED Course Vital Signs 02/04/22 02/04/22 20:01 20:37 Temperature 98.5 F 98.4 F Pulse Rate 87 73 Respiratory 18 20 Rate Blood Pressure 123/87 Blood Pressure 134/79 [Right] O2 Sat by Pulse 98 100 Oximetry ED Medical Decision Making - Radiology Data Radiology results: report reviewed, image reviewed [facility] [address] [place] [address] XRay Report Signed Patient: MALICK GARCIA MR#: [id number] : 1965 Acct:[id number] Age/Sex: 56 / M ADM Date: 02/04/22 Loc: ED Attending Dr: Ordering Physician: MONTY MARS MD Date of Service: 02/04/22 Procedure(s): XR hand 3+V RT Accession Number(s): [id number] cc: MONTY MARS MD Fluoro Time In Minutes: RIGHT HAND 4 VIEW(S) INDICATION / CLINICAL INFORMATION: tv fell in his hand COMPARISON: None available. FINDINGS: BONES / JOINT(S): There is an oblique fracture through the distal fifth metacarpal which has possible intra-articular involvement. There is moderate degeneration of the first metacarpophalangeal joint and scattered degeneration throughout the interphalangeal joints. SOFT TISSUES: No significant abnormality. ADDITIONAL FINDINGS: None. Signer Name: Semaj Wilson DO Signed: 02/04/2022 9:01 PM Workstation Name: [id number] Transcribed By: BELLE Dictated By: SEMAJ WILSON DO Electronically Authenticated By: SEMAJ WILSON DO Signed Date/Time: 02/04/222100 DD/ 99 TD/TT: Print - Medical Decision Making This is a 56-year-old -[place]ic male with history of hypertension and migraine headaches who presents to the ED with complaint of acute onset persistent right hand pain and swelling after a heavy TV fell on his right hand 24 hours ago. Patient states that he is unable perform any active range of motion with his right hand because of worsening pain. In the ED, patient is alert and oriented x3 and is not in any distress. Patient was treated for pain in the ED. Right hand x-ray showed an oblique fracture through the distal fifth metacarpal which has possible intra-articular involvement. There is moderate degeneration of the first metacarpophalangeal joint and scattered degeneration throughout the interphalangeal joints. Patient right hand was splinted with ulnar gutter splint. On reevaluation, patient is neurovascularly intact. Patient was discharged home on pain medications and given referral to the orthopedic surgeon Dr. Giles for follow-up. Patient is advised to contact Dr. Giles's office first thing the morning on Saturday, February 05, 2022 to schedule a follow-up appointment. Patient was advised to return to the ED immediately if symptoms get worse. - Differential Diagnosis Boxer fracture; hand contusion; hand sprain; muscle strain Critical care attestation.: If time is entered above; I have spent that time in minutes in the direct care of this critically ill patient, excluding procedure time. ED Disposition Clinical Impression: Displaced fracture of neck of right fifth metacarpal bone Qualifiers: Encounter type: initial encounter Fracture type: closed Qualified Code(s): S62.336A - Displaced fracture of neck of fifth metacarpal bone, right hand, initial encounter for closed fracture Contusion of right hand including fingers Qualifiers: Encounter type: initial encounter Qualified Code(s): S60.221A - Contusion of right hand, initial encounter; S60.00XA - Contusion of unspecified finger without damage to nail, initial encounter Disposition: HOME / SELF CARE / HOMELESS Is pt being admited?: No Does the pt Need Aspirin: No Condition: Stable Instructions: Cast or Splint Care, Adult, [id number], Metacarpal Fracture, [id number], Hand Contusion, [id number] Additional Instructions: The right hand x-ray showed an oblique fracture through the distal fifth met acarpal which has possible intra-articular involvement. There is moderate degeneration of the first metacarpophalangeal joint and scattered degeneration throughout the interphalangeal joints. Therefore take medications with food, drink plenty of fluids, follow-up with the orthopedic surgeon Dr. Giles for further evaluation. Contact Dr. Giles's office first thing the morning on Saturday, February 05, 2022 to schedule a follow-up appointment. Return to the ED immediately if symptoms get worse. Prescriptions: Ibuprofen [Motrin 600 MG tab] 600 mg PO Q8H PRN #30 tablet PRN Reason: Pain HYDROcodone/APAP 5-325 [[place] 5/325] 1 each PO Q6HR PRN #12 tablet PRN Reason: Pain Referrals: DO GILES MD [Staff Physician] - 3-5 Days Time of Disposition: 21:33 Print Language: TUVAL[place]
== END 2022-02-04 21:56 | disposition home or self-care (01) ==
LOC: ED 18:26
DX: S62.336A Displaced fracture of neck of fifth metacarpal bone, right hand, initial encounter for closed fracture (principal); I10 Essential (primary) hypertension; Z79.899 Other long term (current) drug therapy; W22.8XXA Striking against or struck by other objects, initial encounter; Y93.89 Activity, other specified; Y92.89 Other specified places as the place of occurrence of the external cause; Y99.8 Other external cause status
CPT/HCPCS: 99283; J3490; Q0162